=== PATIENT | female | born 1980 | race African-American/Black ===

== ENCOUNTER 2018-10-21 22:20 | Emergency (ER) | payer OTHER ==
[~2018-10-21] VITALS: Ht 165.1 cm; Wt 77.1 kg
[~2018-10-21 22:20] MED LIST: FOLIC ACID1 MG PO; TRINATE TABLET1 TAB PO; VITAMIN B-12500 MCG PO; VITAMIN E400 UNIT PO
[2018-10-21] MEDS ORDERED: UNICOMPLEX M TA1 TA1 PO (22:30)
[2018-10-21 22:40] LABS: HEMOGLOBIN 8.4 gm/dL (12.0-15.0); MCH 27.1 pg (26.0-34.0); MCHC 35.1 g/dL (28.0-37.0); MCV 77.1 fL (80.0-100.0); PLATELET COUNT 430 thou/uL (150-400); RBC 3.12 mil/uL (4.20-5.00); RDW 20.1 % (10.5-14.5)
[2018-10-21 22:45] LABS: CALCIUM 8.9 mg/dL (8.5-10.1); CREATININE 0.7 mg/dL (0.6-1.0); POTASSIUM 3.3 mmol/L (3.5-5.1)
[2018-10-21 22:51] LABS: ALBUMIN 4.1 g/dL (3.4-5.0); TOTAL BILIRUBIN 3.8 mg/dL (<0.1-1.0); TOTAL PROTEIN 7.9 g/dL (6.4-8.2)
[2018-10-21 23:06] LABS: ABSOLUTE NEUTROPHILS 6.3 thou/uL (1.4-8.2); NUCLEATED RBCS 2 /100WBC
[2018-10-21 23:09] LABS: ANISOCYTOSIS 2+; MICROCYTES 1+; PLATELET ESTIMATE INCREASED; SCHISTOCYTES 1+; TARGET CELLS 1+
[2018-10-22 00:01] LABS: URINE BILIRUBIN NEGATIVE (Negative); URINE BLOOD NEGATIVE (Negative); URINE CLARITY CLEAR; URINE COLOR YELLOW; URINE GLUCOSE-RANDOM* NEGATIVE (Negative); URINE KETONES NEGATIVE (Negative); URINE LEUKOCYTES-REFLEX NEGATIVE (Negative); URINE NITRITE-REFLEX NEGATIVE (Negative); URINE PROTEIN (DIPSTICK) NEGATIVE (Negative); URINE UROBILINOGEN 0.2 E.U./dl (0.2-1.0)
[2018-10-22] MEDS ORDERED: BENTYL 20 MG TA20 M1 PO (00:21)
[2018-10-22] MEDS ORDERED: ZOFRAN4 MG PO (00:21)
[2018-10-22 04:03] VITALS: BP 108/65
== END 2018-10-22 04:03 | disposition home or self-care (01) ==
LOC: ER 22:20
PROVIDERS: Emergency Medicine
DX: K80.20 Calculus of gallbladder without cholecystitis without obstruction (principal); R11.2 Nausea with vomiting, unspecified

== ENCOUNTER 2019-06-06 00:28 | Emergency (ER) | payer OTHER ==
[~2019-06-06] VITALS: Ht 165.1 cm; Wt 81.7 kg
[~2019-06-06 00:28] MED LIST changes: +BENTYL 20 MG TA20 M1 PO; +UNICOMPLEX M TA1 TA1 PO; +ZOFRAN4 MG PO
[2019-06-06 00:30] VITALS: BP 125/76
[2019-06-06] MEDS ORDERED: AMOXICILLIN875 MG PO ×2 (01:26→01:50)
== END 2019-06-06 02:07 | disposition home or self-care (01) ==
LOC: ER 00:28 → EDBD 00:28 → ER 00:28
DX: R59.1 Generalized enlarged lymph nodes (principal); D57.1 Sickle-cell disease without crisis

== ENCOUNTER 2021-04-24 10:16 | Emergency (ER) | payer OTHER ==
[~2021-04-24] VITALS: Ht 165.1 cm; Wt 79.4 kg
[~2021-04-24 10:16] MED LIST changes: +AMOXICILLIN875 MG PO
[2021-04-24 11:36] VITALS: BP 129/78
== END 2021-04-24 11:36 | disposition home or self-care (01) ==
LOC: ER 10:16
DX: M79.672 Pain in left foot (principal); Z79.899 Other long term (current) drug therapy

== ENCOUNTER 2021-04-27 05:40 | Emergency (ER) | payer OTHER ==
[~2021-04-27] VITALS: Ht 165.1 cm; Wt 79.4 kg
--- NOTE | ~2021-04-27 | EMS ---
[facility] [address] [place] [address] EMS Patient Care Report Name: EMIL SEVILLA Room #: DEP AMARILIS Pickett#: [id number] Admission: 04/27/21 Attend Phys: Discharge: 04/27/21 Date of : 78 Report #: [id number] THIS REPORT FOR: //name// Report Transmitted: 04/28/2021 12:42 EMS Care Summary [place], [place]/[facility] Incident [id number] @ 04/27/2021 05:03 Incident Location [address] [place] [address] Patient EMIL SEVILLA Female, 40 Years 1980 Patient Address [id number] [place] [address] Patient History Sickle Cell Disease,Gallstone, Patient Allergies No known allergies, Patient Medications Aspirin, Chief Complaint LEFT SIDE ABDOMINAL PAIN Disposition Transported No Lights/[place] Dispatch Reason Sick Person Transported To [facility] Narrative ARRIVED TO FIND PT SITTING ON A COUCH. PT STATES SHE HAS A HX OF GALSTONES, AND IS HAVING ABDMINAL PAIN SIMILAR TO OTHER TIMES IN THE PAST SHE HAS HAD [facility] [address] [place] [address] EMS Patient Care Report Name: EMIL SEVILLA Room #: DEP [facility]..#: [id number] Admission: 04/27/21 Attend Phys: Discharge: 04/27/21 Date of : [birth year] Report #: [id number] GALSTONES. ALS ASSESSMENT VITALS OBTAINED. PT ASSISTED WALK TO COT, SECURED WITH STRAPS X2, LOADED WITHOUT INCIDENT. ENROUTE, PT CONDITION UNCHANGED. PT TAKEN INSIDE ON COT TO ER 12. PT MOVED TO BED. REPORT GIVEN TO NURSE, PT CARE TRANSFERRED. Initial Vitals @05:34P: 70,R: 24,BP: 165/86,Pain: 10/10,GCS: 15,CO: 3,SpO2: 97,Revised Trauma: 12, @05:26P: 73,R: 24,BP: 147/74,Pain: 10/10,GCS: 15,CO: 3,SpO2: 98,Revised Trauma: 12, Assessments @05:15MENTAL:Place Oriented,Event Oriented,Person Oriented,Time Oriented,SKIN:HEENT:Head/Face: No Abnormalities,Neck/Airway: No Abnormalities,LUNG SOUNDS:Left Upper: Other,Left Lower: Other,General: No Abnormalities,ABDOMEN:Left Upper: Other,Left Lower: Other,General: No Abnormalities,PELVIS//GI:No Abnormalities,EXTREMITIES:Left Arm: No Abnormalities,Right Arm: No Abnormalities,Left Leg: No Abnormalities,Right Leg: No Abnormalities,PULSE:Radial: 2+ Normal,NEURO:No Abnormalities, Impression Abdominal Pain Procedures @05:15ALS AssessmentResponse: UnchangedSucceeded Timeline 05:02,Call Received 05:02,Dispatch Notified 05:03,Dispatched 05:05,En Route 05:11,On Scene 05:15,At Patient 05:15,ALS Assessment,Response: UnchangedSucceeded, 05:25,Depart Scene 05:26,BP: 147/74 M,PULSE: 73,RR: 24 R,SPO2: 98 Ox,ETCO2: ,BG: ,PAIN: 10,GCS: 15, 05:34,BP: 165/86 M,PULSE: 70,RR: 24 R,SPO2: 97 Ox,ETCO2: ,BG: ,PAIN: 10,GCS: 15, 05:37,At Destination 05:45,Call Closed Disclaimer [facility] [address] [place] [address] EMS Patient Care Report Name: EMIL SEVILLA Room #: DEP Nieves#: [id number] Admission: 04/27/21 Attend Phys: Discharge: 04/27/21 Date of : 78 Report #: [id number] v1.1 Copyright 2020 [employer] This EMS Care Summary contains data elements from the applicable legal record (which may be displayed differently). It is designed to provide pertinent information for the following purposes: continuity of care, clinical quality, and state data reporting. The complete legal record is available to ED staff and administrators of the receiving hospital in [employer]'s Patient Tracker. All data is provided "as is."
[2021-04-27 06:27] LABS: HEMATOCRIT 26.6 % (37.0-47.0); HEMOGLOBIN 9.4 gm/dL (12.0-15.0); MCH 28.4 pg (26.0-34.0); MCHC 35.5 g/dL (28.0-37.0); MCV 80.1 fL (80.0-100.0); RBC 3.32 mil/uL (4.20-5.00); RDW 19.6 % (10.5-14.5)
[2021-04-27 06:49] LABS: CALCIUM 8.7 mg/dL (8.5-10.1); CREATININE 0.8 mg/dL (0.6-1.0); POTASSIUM 3.9 mmol/L (3.5-5.1)
[2021-04-27 06:54] LABS: ALBUMIN 3.9 g/dL (3.4-5.0); TOTAL BILIRUBIN 3.3 mg/dL (0.2-1.0); TOTAL PROTEIN 7.9 g/dL (6.4-8.2)
[2021-04-27 08:09] LABS: URINE BILIRUBIN NEGATIVE (Negative); URINE BLOOD NEGATIVE (Negative); URINE CLARITY CLEAR; URINE COLOR YELLOW; URINE GLUCOSE-RANDOM* NEGATIVE (Negative); URINE KETONES NEGATIVE (Negative); URINE LEUKOCYTES-REFLEX NEGATIVE (Negative); URINE NITRITE-REFLEX NEGATIVE (Negative); URINE PROTEIN (DIPSTICK) NEGATIVE (Negative); URINE UROBILINOGEN 0.2 E.U./dl (0.2-1.0)
[2021-04-27] MEDS ORDERED: PRILOSEC OTC20 MG PO (09:36)
[2021-04-27] MEDS ORDERED: CARAFATE1 GM PO (09:36)
[2021-04-27 09:45] VITALS: BP 138/61
== END 2021-04-27 09:45 | disposition home or self-care (01) ==
LOC: ER 05:40
DX: K80.20 Calculus of gallbladder without cholecystitis without obstruction (principal); K29.70 Gastritis, unspecified, without bleeding; Z79.899 Other long term (current) drug therapy

== ENCOUNTER 2021-05-11 01:26 | Emergency (ER) | payer OTHER ==
[~2021-05-11] VITALS: Ht 165.1 cm; Wt 79.4 kg
[~2021-05-11 01:26] MED LIST changes: +CARAFATE1 GM PO; +PRILOSEC OTC20 MG PO
[2021-05-11 02:17] LABS: HEMOGLOBIN 8.7 gm/dL (12.0-15.0); RDW 19.1 % (10.5-14.5)
[2021-05-11 02:18] LABS: HEMATOCRIT 24.8 % (37.0-47.0); MCH 28.1 pg (26.0-34.0); MCHC 35.2 g/dL (28.0-37.0); PLATELET COUNT 409 thou/uL (150-400); WBC 12.1 thou/uL (4.0-11.0)
[2021-05-11 02:26] LABS: CALCIUM 8.6 mg/dL (8.5-10.1); CREATININE 0.7 mg/dL (0.6-1.0); POTASSIUM 3.8 mmol/L (3.5-5.1)
[2021-05-11 02:30] LABS: ALBUMIN 3.9 g/dL (3.4-5.0); TOTAL BILIRUBIN 3.5 mg/dL (0.2-1.0)
[2021-05-11] MEDS ORDERED: ZOFRAN ODT4 MG PO ×2 (03:08)
[2021-05-11] MEDS ORDERED: NORCO5 PO ×2 (03:08)
[2021-05-11 03:21] LABS: NUCLEATED RBCS 1 /100WBC
[2021-05-11 03:22] LABS: ANISOCYTOSIS 2+; LARGE PLATELETS FEW; PLATELET ESTIMATE INCREASED; POIKILOCYTOSIS 1+; SCHISTOCYTES 1+
[2021-05-11 03:38] VITALS: BP 138/82
[2021-05-12] MEDS ORDERED: ZOFRAN ODT4 MG PO ×2 (12:06)
== END 2021-05-11 03:30 | disposition home or self-care (01) ==
LOC: ER 01:26
PROVIDERS: Emergency Medicine
DX: K80.20 Calculus of gallbladder without cholecystitis without obstruction (principal); Z79.899 Other long term (current) drug therapy

== ENCOUNTER 2021-05-12 07:28 | Emergency (ER) | payer OTHER ==
[~2021-05-12] VITALS: Ht 165.1 cm; Wt 77.1 kg
--- NOTE | ~2021-05-12 | EMS ---
[address] [address] EMS Patient Care Report Name: EMIL SEVILLA Room #: DEP AMARILIS Pickett#: [id number] Admission: 05/12/21 Attend Phys: Discharge: 05/12/21 Date of : [birth year] Report #: [id number] THIS REPORT FOR: //name// Report Transmitted: 05/15/2021 10:25 EMS Care Summary [place], [place]/[facility] Incident [id number] @ 05/12/2021 06:54 Incident Location [address] [place] [address] [address] [id number] Patient EMIL SEVILLA Male, 40 Years 1980 Patient Address Patient History None Reported, Patient Allergies No known allergies, Patient Medications None Reported, Chief Complaint abdominal pain Disposition Transported No Lights/[place] Dispatch Reason Abdominal Pain/Problems Transported To [facility] Narrative Upon ems arrival, pt meet ems crew outside and lead us to pt sitting on couch in living room. pt then stated she has been having abdominal pain since yesterday. pt stated she has chronic gallstone pain. pt stated she had a consultation with a surgeon today but would like to be transported to [facility]. pt was then assisted to stretcher and secured with straps. pt was transferred non [address] [address] EMS Patient Care Report Name: EMIL SEVILLA Room #: DEP ER Nieves#: [id number] Admission: 05/12/21 Attend Phys: Discharge: 05/12/21 Date of : [birth year] Report #: [id number] emergent and care was transferred to [facility]. Initial Vitals @07:12P: 73,R: 18,BP: 127/71,Pain: 10/10,GCS: 15,SpO2: 100,Revised Trauma: 12, @07:13P: 73,R: 18,BP: 131/88,Pain: 10/10,GCS: 15,SpO2: 100,Revised Trauma: 12, Assessments @07:14MENTAL:No Abnormalities,SKIN:No Abnormalities,HEENT:Head/Face: No Abnormalities,Eyes: No Abnormalities,Neck/Airway: No Abnormalities,LUNG SOUNDS:General: No Abnormalities,Left Upper: No Abnormalities,Right Upper: No Abnormalities,Left Lower: No Abnormalities,Right Lower: No Abnormalities,ABDOMEN:General: No Abnormalities,Left Upper: No Abnormalities,Right Upper: No Abnormalities,Left Lower: No Abnormalities,Right Lower: No Abnormalities,PELVIS//GI:No Abnormalities,EXTREMITIES:Left Arm: No Abnormalities,Right Arm: No Abnormalities,Left Leg: No Abnormalities,Right Leg: No Abnormalities,PULSE:NEURO:No Abnormalities,@07:18MENTAL:No Abnormalities,SKIN:No Abnormalities,HEENT:Head/Face: No Abnormalities,Eyes: No Abnormalities,Neck/Airway: No Abnormalities,LUNG SOUNDS:General: No Abnormalities,Left Upper: No Abnormalities,Right Upper: No Abnormalities,Left Lower: No Abnormalities,Right Lower: No Abnormalities,ABDOMEN:General: No Abnormalities,Left Upper: No Abnormalities,Right Upper: No Abnormalities,Left Lower: No Abnormalities,Right Lower: No Abnormalities,PELVIS//GI:No Abnormalities,EXTREMITIES:Left Arm: No Abnormalities,Right Arm: No Abnormalities,Left Leg: No Abnormalities,Right Leg: No Abnormalities,PULSE:NEURO:No Abnormalities, Impression Abdominal Pain Procedures @07:19BLS AssessmentResponse: Unchanged Timeline 06:52,Call Received 06:52,Dispatch Notified 06:54,Dispatched 06:55,En Route 07:04,On Scene 07:05,At Patient 07:06,Depart Scene 07:10,At Destination 07:12,BP: 127/71 M,PULSE: 73,RR: 18 R,SPO2: 100 Ox,ETCO2: ,BG: ,PAIN: 10,GCS: 15, 07:13,BP: 131/88 M,PULSE: 73,RR: 18 R,SPO2: 100 Ox,ETCO2: ,BG: ,PAIN: 10,GCS: 15, 07:19,BLS Assessment,Response: Unchanged [address] [address] EMS Patient Care Report Name: DIEMIL RODRIGUEZ Room #: DEP Nieves#: [id number] Admission: 05/12/21 Attend Phys: Discharge: 05/12/21 Date of : [birth year] Report #: [id number] 07:33,Call Closed Disclaimer v1.1 Copyright 2020 [employer] This EMS Care Summary contains data elements from the applicable legal record (which may be displayed differently). It is designed to provide pertinent information for the following purposes: continuity of care, clinical quality, and state data reporting. The complete legal record is available to ED staff and administrators of the receiving hospital in [employer]'s Patient Tracker. All data is provided "as is."
[~2021-05-12 07:28] MED LIST changes: +NORCO5 PO; +ZOFRAN ODT4 MG PO
[2021-05-12 08:19] LABS: ABSOLUTE NEUTROPHILS 6.3 thou/uL (1.4-8.2); BASOPHILS 0.8 % (0.0-2.0); EOSINOPHILS 1.2 % (0.0-3.0); HEMATOCRIT 25.3 % (37.0-47.0); HEMOGLOBIN 8.8 gm/dL (12.0-15.0); MCH 27.9 pg (26.0-34.0); MCHC 34.8 g/dL (28.0-37.0); MONOCYTES 11.6 % (1.0-8.0); PLATELET COUNT 428 thou/uL (150-400); POLYS 62.4 % (36.0-66.0); RBC 3.16 mil/uL (4.20-5.00); RDW 18.8 % (10.5-14.5); WBC 10.1 thou/uL (4.0-11.0)
[2021-05-12 08:21] LABS: CALCIUM 9.3 mg/dL (8.5-10.1); CREATININE 0.7 mg/dL (0.6-1.0); POTASSIUM 4.9 mmol/L (3.5-5.1)
[2021-05-12 08:38] LABS: ALBUMIN 4.1 g/dL (3.4-5.0); DIRECT BILIRUBIN 0.2 mg/dL (<0.1-0.2); TOTAL BILIRUBIN 4.7 mg/dL (0.2-1.0); TOTAL PROTEIN 8.5 g/dL (6.4-8.2)
[2021-05-12] MEDS ORDERED: ZOFRAN ODT4 MG PO ×2 (12:06)
[2021-05-12 12:29] VITALS: BP 121/70
--- NOTE | 2021-05-13 11:37 | EKG ---
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
== END 2021-05-12 12:40 | disposition home or self-care (01) ==
LOC: ER 07:28
PROVIDERS: Student in an Organized Health Care Education/Training Program
DX: K80.20 Calculus of gallbladder without cholecystitis without obstruction (principal); R10.11 Right upper quadrant pain; Z79.899 Other long term (current) drug therapy

== ENCOUNTER 2021-05-13 04:15 | Inpatient (IN) | payer OTHER ==
[2021-05-13] VITALS (8 sets, daily range): BP systolic 134–161; BP diastolic 71–90
[~2021-05-13] VITALS: Ht 165.1 cm; Wt 82.9 kg
--- NOTE | ~2021-05-13 | O ---
[facility] [place] [address] OPERATIVE REPORT Name: EMIL SEVILLA Room #: 458-P ADM IN M.R.#: [id number] Admission: 05/13/21 Attend Phys: Hang Montesinos MD Discharge: Date of : [birth year] Report #: [id number] THIS REPORT FOR: cc: [facility] - Clinic physician unknown [facility] - Clinic physician unknown German Segura MD ~ DATE OF SERVICE: 05/13/2021 PREOPERATIVE DIAGNOSIS: Symptomatic cholelithiasis. POSTOPERATIVE DIAGNOSIS: Acute cholecystitis. OPERATION: Laparoscopic cholecystectomy. SURGEON: German Segura MD ANESTHESIA: General. ESTIMATED BLOOD LOSS: 5 mL. SPECIMENS: Gallbladder. DESCRIPTION OF PROCEDURE: After informed consent was obtained, the patient was brought to the operating room and placed supine. SCDs were placed and working, preoperative antibiotics were administered, general anesthesia was induced. The abdomen was prepped and draped in the usual sterile fashion. A 10 mm incision was made below the umbilicus. Fascia was incised and a trocar was placed. Pneumoperitoneum was established. Three right upper quadrant 5 mm ports were placed. Gallbladder was grasped at the fundus and retracted cephalad. Infundibulum was grasped and retracted laterally. I dissected out the cystic duct and cystic artery. Cystic duct was clipped and a ductotomy was made. I inserted a cholangiogram catheter. However, cholangiogram was not able to be performed. There was contrast, did not flow past the cystic duct. There may have been obstruction at the distal cystic duct. The duct was very friable and I did not think it was advisable to continue with manipulation of the cystic duct. Therefore, the cystic duct was ligated using a PDS Endoloop. The cystic artery was clipped and ligated. Gallbladder was then taken off the liver bed with electrocautery. It was placed into an Endopouch and removed. The fascia was closed with a olmirm-ae-zjjhe 0 Vicryl. Given the amount of inflammation and infection in the gallbladder fossa, I placed a 15-Swedish drain. The ports were then removed under direct vision. The fascia was closed with a viutty-rb-ypkzj 0 Vicryl. Skin was closed with 4-0 Monocryl. Incisions were dressed with Steri-Strips. COMPLICATIONS: None. [address] [address] OPERATIVE REPORT Name: EMIL SEVILLA Room #: 458-P [facility] IN .R.#: [id number] Admission: 05/13/21 Attend Phys: Hang Montesinos MD Discharge: Date of : 78 Report #: [id number] DISPOSITION: The patient was taken to recovery in satisfactory condition. By: 40 54 German Segura MD /nt
[2021-05-13 05:06] LABS: HEMATOCRIT 25.5 % (37.0-47.0); MCHC 35.3 g/dL (28.0-37.0); MCV 79.5 fL (80.0-100.0); PLATELET COUNT 428 thou/uL (150-400); RDW 18.7 % (10.5-14.5); WBC 12.4 thou/uL (4.0-11.0)
[2021-05-13 05:18] LABS: CALCIUM 9.4 mg/dL (8.5-10.1); CREATININE 0.7 mg/dL (0.6-1.0)
[2021-05-13 05:24] LABS: ALBUMIN 4.4 g/dL (3.4-5.0); POTASSIUM 3.8 mmol/L (3.5-5.1); TOTAL BILIRUBIN 4.8 mg/dL (0.2-1.0); TOTAL PROTEIN 8.7 g/dL (6.4-8.2)
[2021-05-13 06:03] LABS: ABSOLUTE NEUTROPHILS 7.7 thou/uL (1.4-8.2); NUCLEATED RBCS 1 /100WBC
[2021-05-13 06:04] LABS: ANISOCYTOSIS 2+
[2021-05-13 06:06] LABS: OVALOCYTES 1+; POIKILOCYTOSIS 2+; SCHISTOCYTES FEW; TARGET CELLS 1+; TEARDROPS FEW
--- NOTE | 2021-05-13 06:14 | NUR ---
PT STILL C/O ABDOMINAL PAIN AFTER RECEIVING FENTANYL. 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 PT STATES NAUSEA IS IMPROVED.
[2021-05-13 08:57] LABS: URINE BILIRUBIN NEGATIVE (Negative); URINE BLOOD TRACE (Negative); URINE CLARITY CLEAR; URINE COLOR YELLOW; URINE GLUCOSE-RANDOM* NEGATIVE (Negative); URINE KETONES 2+ (Negative); URINE LEUKOCYTES-REFLEX NEGATIVE (Negative); URINE NITRITE-REFLEX NEGATIVE (Negative); URINE PROTEIN (DIPSTICK) 2+ (Negative); URINE UROBILINOGEN 0.2 E.U./dl (0.2-1.0)
[2021-05-13 09:23] LABS: CASTS None Seen /LPF (None Seen); CRYSTALS None Seen /LPF (None Seen); SQUAMOUS 4-10 Moderate /LPF (0-3); URINE RBC 1-2 Rare /HPF (NONE SEEN); URINE WBC-REFLEX 0-5 Rare /HPF (0-5)
[2021-05-13 09:24] LABS: BACTERIA-REFLEX 1-9 Few /HPF (None Seen)
--- NOTE | 2021-05-13 16:26 | NUR ---
Pt arrived to floor from emergency dept per cart at 12noon.Admission hx, assessment and care plan completed. Pt c/o abdominal pain rated 5/10. Morphine ivp given as ordered with relief.Piv initiated. Dr Kay son here,order noted.Pt will be npo after mn and have surgery in am. Pt aware. Pt in bed resting at present. Will continue to monitor.
[2021-05-14] VITALS (9 sets, daily range): BP systolic 116–137; BP diastolic 59–78
--- NOTE | 2021-05-14 02:33 | NUR ---
PT CARE ASSUMED WITH PT IN BED WATCHING TV.PT A/O X4.PT UP WITH X1 ASSIST.PT WENT FOR SURGERY AT 2030 AND RETURNED AT 2325 IN STABLE CONDITION.V/C STABLE AND WNL.PT HAD 4LAP SITES 3 WITH BANDAID AND 1 WITH SONIYA DRAIN.IS GIVING TO PT AND PILLOW AND ICE PACK .PT DIET TO BE ADVANCED TOLERATED TO REGULAR DIET.SCDS ON BLE.WILL CONTINUE TO MONITOR PER POC
[2021-05-14 08:49] LABS: CALCIUM 9.1 mg/dL (8.5-10.1); CREATININE 0.8 mg/dL (0.6-1.0); POTASSIUM 4.4 mmol/L (3.5-5.1)
[2021-05-14 08:56] LABS: ALBUMIN 3.7 g/dL (3.4-5.0); TOTAL BILIRUBIN 4.3 mg/dL (0.2-1.0); TOTAL PROTEIN 8.1 g/dL (6.4-8.2)
--- NOTE | 2021-05-14 18:50 | NUR ---
TREATED PT FOR PAIN THIS SHIFT AND DISCONTINUED IVF. PT TOLERATING PO AND AMBULATED ROOM. WILL DISCHARGE IN THE AM.
--- NOTE | 2021-05-15 02:43 | NUR ---
PT CARE ASSUMED WITH PT IN BED RESTING.PT IS A/O X4.PT IS UP WITH STANDBY ASSIST TO THE BEDSIDE COMMODE.3LAP SITES WITH BANDAID I/C/D AND 1 SONIYA DRAIN SITE ON RLQ.PT C/O AND PAIN MANAGED WITH NORCO.PT PASSING GAS NO BM.WILL CONTINUE TO MONITOR
[2021-05-15 08:09] LABS: ALBUMIN 3.5 g/dL (3.4-5.0); CREATININE 0.7 mg/dL (0.6-1.0); POTASSIUM 3.9 mmol/L (3.5-5.1); TOTAL BILIRUBIN 4.1 mg/dL (0.2-1.0); TOTAL PROTEIN 7.9 g/dL (6.4-8.2)
[2021-05-15 12:19] VITALS: BP 118/65
--- NOTE | 2021-05-15 12:33 | NUR ---
PT RESTING COMFORTABLY. PAIN CONTROLLED. PT AFEBRILE, ADEQUATE UOP, NO BM, HYPOACTIVE BOWEL SOUNDS WITH SLIGHT AMOUNT OF DISTENSION. APPROPRIATE APPETITE. PT BEING DC HOME WITH ONE SONIYA DRAIN. PT HAS BEEN UPDATED AND EDUCATED ON PT CONDITION, POC, AND DC. PT PROGRESSED TOWARDS POC.
--- NOTE | 2021-05-17 16:06 | PATH ---
[facility] [address] [place] [address] PATHOLOGY RPT PROCEDURE Name: EMIL SEVILLA Room #: 458-P [facility] IN M.R.#: [id number] Admission: 05/13/21 Date of : 78 Discharge: 05/15/21 Report #: [id number] Path Case #: [id number] [facility] Accession Number: [id number] . 01 Material submitted: . gallbladder - GALLBLADDER . 01 Clinical history: . CHOLELITHIASIS . 02 Diagnosis: Gallbladder, cholecystectomy: - Mild chronic cholecystitis along with extensive hemorrhage and congestion. - Cholelithiasis. (IUV/db; 05/17/2021) LBQ 05/17/2021 1358 Local . 02 Electronically signed: . Vivian Lang MD, Pathologist NPI- [id number] . 01 Gross description: . Fixative: Formalin Labeled: Gallbladder Specimen received: Intact gallbladder Dimensions: 14.0 x 3.0 x 2.5 cm Serosa: Light [place] Lymph node: None identified Mucosa: Velvety and dark [place] Average wall thickness: Up to 0.2 cm Calculi: Present, black and friable Abnormalities: None identified . A1- Senior Qa Analyst body, fundus, and the cystic duct margin. ([facility]; 05/16/2021) [facility] 05/16/2021 1317 Local . 02 Pathologist provided ICD-10: K80.10 . 02 CPT . 664995 Specimen Comment: A courtesy copy of this report has been sent to [phone] Specimen Comment: Report sent to Performed at: [address] [address] PATHOLOGY RPT PROCEDURE Name: DIEMIL Room #: 458-[facility] IN [facility].#: [id number] Admission: 05/13/21 Date of : [birth year] Discharge: 05/15/21 Report #: [id number] Path Case #: [id number] [address] [id number] MD Mike Talley MD Phone: [phone] Performed at: [address] [id number] MD Vivian Lang MD Phone: [phone]
== END 2021-05-15 13:18 | disposition home or self-care (01) | DRG 419 ==
LOC: ER 04:15 → EROBS 06:17 → 4W 11:32
PROVIDERS: Emergency Medicine; Family Medicine; Surgery; ADMIT Hospitalist; ATTEND Hospitalist
PROC: 0FT44ZZ Resection of Gallbladder, Percutaneous Endoscopic Approach (ICD-10-PCS; principal; 2021-05-13)
DX: K80.00 Calculus of gallbladder with acute cholecystitis without obstruction (principal); D57.1 Sickle-cell disease without crisis; Z20.822 Contact with and (suspected) exposure to COVID-19; Z79.899 Other long term (current) drug therapy
CPT/HCPCS: 10040; 50010; 50101; 50331; 50411; 50555; 51297; 51489; 52265; 52266; 53307; 53312; 53314; 55245; 55317; 56462; 56525; 56526; 56527; 58574; 62110; 62900; 70005